=== PATIENT | female | born 1980 | race Caucasian/White ===

== ENCOUNTER 2016-12-08 00:36 | Emergency (ER) | payer SELFPAY ==
[2016-12-08 00:52] VITALS: BP 116/82; TEMP 98.3
[2016-12-08] MEDS ORDERED: Sodium Chloride 0.9% 500 ML IV ONE (01:23)
[2016-12-08] MEDS ORDERED: Sodium Chloride 0.9% 1,000 ML ONE (01:35)
[2016-12-08 01:40] LABS: BASO # 0.1 K/uL (0.0-0.2); BASO % 0.8 % (0.0-2.0); EOS # 0.1 K/uL (0.0-0.7); EOS % 0.9 % (0.0-4.0); HEMATOCRIT 33.7 % (34.0-47.0); LYMPH # 1.4 K/uL (1.0-4.3); LYMPH % 16.7 % (20.0-40.0); MEAN CELL VOLUME 73.8 fL (81.0-99.0); MEAN CORPUSCULAR HGB CONC 32.5 g/dL (33.0-37.0); MONO # 0.4 K/uL (0.0-0.8); RED CELL DISTRIBUTION WIDTH 16.1 % (11.5-14.5); WHITE BLOOD COUNT 8.4 K/uL (4.8-10.8)
[2016-12-08 01:58] LABS: ALB/GLOB RATIO 1.2 (1.0-2.1); ALKALINE PHOSPHATASE 84 U/L (38-126); ALT/SGPT 41 U/L (9-52); AST/SGOT 18 U/L (14-36); BILIRUBIN,TOTAL 0.5 mg/dL (0.2-1.3); BLOOD UREA NITROGEN 4 mg/dL (7-17); CALCIUM 9.2 mg/dl (8.6-10.4); CARBON DIOXIDE 20 mmol/L (22-30); CHLORIDE 106 mmol/L (98-107); GFR AFRICAN-AMERICAN > 60; GLUCOSE,RANDOM 96 mg/dL (65-105); POTASSIUM 3.7 mmol/L (3.6-5.2); SODIUM 142 mmol/L (132-148); TOTAL PROTEIN 7.4 g/dL (6.3-8.3)
--- NOTE | 2016-12-08 02:21 | CT ---
EXAM: CT Head Without Intravenous Contrast CLINICAL HISTORY: 36 years old, female; Pain; Headache and other: Dizziness, headache , leg numbness TECHNIQUE: Axial computed tomography images of the head/brain without intravenous contrast. All CT scans at this facility use one or more dose reduction techniques, viz.: automated exposure control; ma/kV adjustment per patient size (including targeted exams where dose is matched to indication; i.e. head); or iterative reconstruction technique. COMPARISON: No relevant prior studies available. FINDINGS: Brain: No intracranial hemorrhage. No mass. No definite edema. Ventricles: No hydrocephalus. Bones/joints: No acute fracture. Soft tissues: Unremarkable. Sinuses: No acute sinusitis. Mastoid air cells: No mastoid effusion. Orbits: Unremarkable as visualized. IMPRESSION: 1. No definite acute intracranial abnormality.
--- NOTE | 2016-12-08 03:18 | C.PDOC ---
History Of Present Illness The patient is a 36yo female, presents to the ED complaining of a "gas pain" present intermittently for the past two weeks. She reports while she was walking yesterday, she felt pressure to her right thigh, followed by a tingling sensation in her right lower leg. "Pt is concerned that her "gas pain is spreading". She also reports since October, she has had recurrent mild dizziness , dry mouth and increased thirst. She denies any other complaints. Time Seen by Provider: 12/08/16 01:08 Chief Complaint (Nursing): Abdominal Pain History Per: Patient History/Exam Limitations: no limitations Onset/Duration Of Symptoms: Days Current Symptoms Are (Timing): Still Present Location Of Pain/Discomfort: Diffuse Quality Of Discomfort: "Pain", Gas Past Medical History Reviewed: Historical Data, Nursing Documentation, Vital Signs Vital Signs: Last Vital Signs Temp 98.3 F 12/08/16 00:47 Pulse 78 12/08/16 03:23 Resp 16 12/08/16 03:23 BP 116/82 12/08/16 00:47 Pulse Ox 100 12/08/16 04:03 - Medical History PMH: No Chronic Diseases Surgical History: Appendectomy (2001) Family History: States: Unknown Family Hx - Social History Hx Alcohol Use: No Hx Substance Use: No - Immunization History Hx Tetanus Toxoid Vaccination: No Hx Influenza Vaccination: No Hx Pneumococcal Vaccination: No Review Of Systems ENT: Positive for: Other (dry mouth, increased thirst) Gastrointestinal: Positive for: Abdominal Pain ("gas pain" ) Musculoskeletal: Positive for: Leg Pain (right thigh pressure, right lower leg tingling) Neurological: Positive for: Dizziness (mild) Physical Exam - Physical Exam Appears: Non-toxic, No Acute Distress Skin: Warm, Dry Head: Atraumatic, Normacephalic Eye(s): bilateral: Normal Inspection, PERRL, EOMI Oral Mucosa: Moist Neck: Normal, Supple Chest: Symmetrical Cardiovascular: Rhythm Regular Respiratory: Normal Breath Sounds Gastrointestinal/Abdominal: Normal Exam, Bowel Sounds, Soft, No Tenderness Back: Normal Inspection Extremity: Normal ROM (full ROM of all extremities), Capillary Refill (< 2 seconds), No Deformity, No Swelling, Other (good strength of all extremities, no weakness or numbness noted.) Neurological/Psych: Oriented x3, Normal Speech, Normal Cognition, Normal Cranial Nerves, No Cerebellar Signs, Normal Motor, Normal Sensation Gait: Steady ED Course And Treatment - Laboratory Results Result Diagrams: 12/08/16 01:37 12/08/16 01:37 ECG: Interpreted By Me, Viewed By Me ECG Rhythm: Sinus Bradycardia (57) Interpretation Of ECG: No ST/T changes O2 Sat by Pulse Oximetry: 100 (RA) Pulse Ox Interpretation: Normal Medical Decision Making Medical Decision Making: Impression: 36y/o female with abdominal discomfort, right leg pressure and tingling Plan: -- EKG -- Labs -- CT Head -- IV Fluida Time: 0225 CT HEad FINDINGS: Brain: No intracranial hemorrhage. No mass. No definite edema. Ventricles: No hydrocephalus. Bones/joints: No acute fracture. Soft tissues: Unremarkable. Sinuses: No acute sinusitis. Mastoid air cells: No mastoid effusion. Orbits: Unremarkable as visualized. IMPRESSION: 1. No definite acute intracranial abnormality. Time: 0300 Upon reassessment, patient is comfortable and sleeping in her room. Time: 0315 Patient informed of labs and CT results. Patient advised to follow up with her PCP. Patient stable for discharge home. Disposition Counseled Patient/Family Regarding: Diagnosis, Need For Followup, Rx Given - Disposition Referrals: [facility] [Outside] Disposition: HOME/ ROUTINE Disposition Time: 03:15 Condition: STABLE Additional Instructions: Please follow up in clinic Increase Fluids Return to ER if worse Instructions: Paresthesia (ED) Forms: [facility] (Romanian) - Clinical Impression Clinical Impression: Paresthesia, Dizziness - PA / LABOR CONCILIATOR / Resident Statement MD/DO has reviewed & agrees with the documentation as recorded. MD/DO has examined the patient and agrees with the treatment plan. - Scribe Statement The provider has reviewed the documentation as recorded by the Scribe Hannah Ibarra All medical record entries made by the Lacey were at my direction and personally dictated by me. I have reviewed the chart and agree that the record accurately reflects my personal performance of the history, physical exam, medical decision making, and the department course for this patient. I have also personally directed, reviewed, and agree with the discharge instructions and disposition.
[2016-12-08 03:24] VITALS: PULSE 78; RESP 16
[2016-12-08 03:54] VITALS: O2SAT 100
--- NOTE | 2016-12-11 22:49 | CARD ---
APPROVED REPORT EKG Measurement Heart [id number] <Conclusion> Sinus bradycardia Low voltage QRS Abnormal ECG
== END 2016-12-08 03:23 | disposition home or self-care (01) ==
LOC: C.ER 00:36
DX: R20.9 Unspecified disturbances of skin sensation (principal); R42 Dizziness and giddiness
CPT/HCPCS: 70450; 80053; 85025; 99283; J7040